=== PATIENT | female | born 1940 | race Caucasian/White ===

== ENCOUNTER 2017-03-10 15:21 | Inpatient (IN) | payer OTHER, MEDICAID ==
[~2017-03-10] VITALS: Ht 162.6 cm; Wt 81.6 kg
[2017-03-10 15:39] VITALS: BP_SYST 86
[2017-03-10] MEDS ORDERED: GASTROGRAFIN 120 ML ONE (16:04)
[2017-03-10 16:46] LABS: BASOPHILS # (AUTO) 0.1 K/uL (0.0-0.2); BASOPHILS % (AUTO) 0.7 % (0.0-2.0); EOSINOPHILS # (AUTO) 0.2 K/uL (0.0-0.4); HEMATOCRIT 33.7 % (36-48); HEMOGLOBIN 11.2 g/dL (12.0-16.0); LYMPHOCYTES # (AUTO) 1.8 K/uL (1.0-5.5); LYMPHOCYTES % (AUTO) 17.9 % (20.5-51.5); MEAN CORPUSCULAR HEMOGLOBIN 29 pg (27-31); MEAN CORPUSCULAR HGB CONC 33 % (32-36); MEAN CORPUSCULAR VOLUME 86 fL (79.0-98.0); MONOCYTES # (AUTO) 0.6 K/uL (0.0-1.0); MONOCYTES % (AUTO) 5.5 % (1.7-9.3); NEUTROPHILS # (AUTO) 7.3 K/uL (1.8-7.7); NEUTROPHILS % (AUTO) 73.9 % (40.0-70.0); PLATELET COUNT (AUTO) 282 K/uL (130-430); RED CELL DISTRIBUTION WIDTH 13.9 % (9.0-15.0)
[2017-03-10] MEDS ORDERED: ASPI-1063 GT (16:46)
[2017-03-10] MEDS ORDERED: OXYC-130 PO (16:46)
[2017-03-10] MEDS ORDERED: CHLO473M5 MM (16:46)
[2017-03-10] MEDS ORDERED: HYDR-1189 PO (16:46)
[2017-03-10] MEDS ORDERED: IPRA3AMP9 INH (16:46)
[2017-03-10] MEDS ORDERED: ACET325T53 GT (16:46)
[2017-03-10] MEDS ORDERED: ENAL20TA PO (16:46)
[2017-03-10] MEDS ORDERED: FAMO20TA98 PO (16:46)
[2017-03-10] MEDS ORDERED: NOR10 PO (16:46)
[2017-03-10] MEDS ORDERED: LEVE500T13 PO (16:46)
[2017-03-10] MEDS ORDERED: SSREG SUBCUT (16:46)
[2017-03-10] MEDS ORDERED: SENN-153 PO (16:46)
[2017-03-10] MEDS ORDERED: METO-442 GT (16:46)
[2017-03-10] MEDS ORDERED: ALBU2.5V7 INH (16:48)
[2017-03-10 16:55] LABS: ANION GAP 6 (5-15); CALCIUM 8.8 mg/dL (8.4-11.0); CHLORIDE 100 mmol/L (98-107); CREATININE 0.52 mg/dL (0.55-1.30); GLUCOSE 84 mg/dL (70-99); POTASSIUM 3.8 mmol/L (3.5-5.1); SODIUM SERUM 135 mmol/L (136-145); UREA NITROGEN, BLOOD 19 mg/dL (8-21)
[2017-03-10 17:00] LABS: ALANINE AMINOTRANSFERASE 27 U/L (12-78); ALBUMIN 2.5 g/dL (3.4-4.8); ASPARTATE AMINOTRANSFERASE 26 U/L (10-37); TOTAL BILIRUBIN 0.9 mg/dL (0.0-1.0)
[2017-03-10 17:53] VITALS: BP_SYST 123
[2017-03-10] MEDS ORDERED: MORPHINE 2 MG/ML INJ. SYRINGE IVP PRN (18:30)
[2017-03-10] MEDS ORDERED: ZOLPIDEM TARTRATE 5 MG TABLET PO PRN (18:30)
[2017-03-10] MEDS ORDERED: ACETAMINOPHEN 325 MG TABLET PO PRN (18:30)
[2017-03-10] MEDS ORDERED: DOCUSATE SODIUM 100 MG CAPSULE PO PRN (18:30)
[2017-03-10] MEDS ORDERED: ONDANSETRON HCL 4 MG/2 ML VIAL IVP PRN (18:30)
[2017-03-10] MEDS ORDERED: MAGNESIUM SULFATE 50 ML IV PRN (18:30)
[2017-03-10] MEDS ORDERED: POTASSIUM CHLORIDE 10 MEQ TAB.PRT.SR PO PRN (18:30)
[2017-03-10] MEDS: D5NS 1,000 ML IV SCH (19:51)
[2017-03-10 20:00] VITALS: BP_SYST 141
[2017-03-10 20:07] VITALS: BP_SYST 123
[2017-03-10 20:10] VITALS: BP_SYST 123
[2017-03-10] MEDS ORDERED: FLU VACC QS 2017-18(36MOS+)/PF 0.5 ML/SYR SYRINGE I.M. PRN (22:45)
[2017-03-10 23:41] VITALS: BP_SYST 144
[2017-03-11 01:08] LABS: BILIRUBIN,URINE NEGATIVE (NEGATIVE); CLARITY/URINE SL CLOUDY (CLEAR); COLOR,URINE YELLOW (YELLOW); GLUCOSE,URINE NEGATIVE (NEGATIVE); KETONES,URINE NEGATIVE (NEGATIVE); LEUKOCYTE ESTERASE ,URINE 2+ (NEGATIVE); NITRITE, URINE POSITIVE (NEGATIVE); PH,URINE 7.5 (5.0-8.0); PROTEIN URINE NEGATIVE (NEGATIVE)
[2017-03-11 01:09] LABS: BLOOD, URINE TRACE (NEGATIVE)
[2017-03-11 01:12] LABS: BACTERIA,URINE MANY /HPF (None Seen); MUCUS,URINE None Seen /LPF (None Seen); WBC,URINE 20-50 /HPF (0-3)
[2017-03-11 04:19] VITALS: BP_SYST 146
[2017-03-11 07:54] LABS: BASOPHILS % (AUTO) 0.6 % (0.0-2.0); EOSINOPHILS # (AUTO) 0.2 K/uL (0.0-0.4); EOSINOPHILS % (AUTO) 2.3 % (0.0-4.0); HEMOGLOBIN 10.4 g/dL (12.0-16.0); LYMPHOCYTES # (AUTO) 1.5 K/uL (1.0-5.5); LYMPHOCYTES % (AUTO) 19.5 % (20.5-51.5); MEAN CORPUSCULAR HEMOGLOBIN 29 pg (27-31); MEAN CORPUSCULAR HGB CONC 34 % (32-36); MEAN CORPUSCULAR VOLUME 86 fL (79.0-98.0); MONOCYTES # (AUTO) 0.4 K/uL (0.0-1.0); MONOCYTES % (AUTO) 5.7 % (1.7-9.3); NEUTROPHILS # (AUTO) 5.5 K/uL (1.8-7.7); NEUTROPHILS % (AUTO) 71.9 % (40.0-70.0); PLATELET COUNT (AUTO) 264 K/uL (130-430); RED BLOOD CELL COUNT(AUTO) 3.59 MIL/uL (4.2-6.2); RED CELL DISTRIBUTION WIDTH 14.2 % (9.0-15.0); WHITE BLOOD COUNT (AUTO) 7.6 K/uL (4.8-10.8)
[2017-03-11] MEDS ORDERED: ALBUTEROL SULFATE 0.083% 2.5 MG/3 ML VIAL.NEB INH PRN (08:00)
[2017-03-11] MEDS ORDERED: DEXTROSE 50% JECT 50 ML DISP.SYRIN IVP PRN (08:00)
[2017-03-11 08:16] LABS: ANION GAP 8 (5-15); CALCIUM 8.4 mg/dL (8.4-11.0); CHLORIDE 104 mmol/L (98-107); CREATININE 0.46 mg/dL (0.55-1.30); GLUCOSE 92 mg/dL (70-99); POTASSIUM 3.7 mmol/L (3.5-5.1); SODIUM SERUM 138 mmol/L (136-145)
[2017-03-11] MEDS: D5NS 1,000 ML IV SCH (08:59)
[2017-03-11] MEDS: cefTRIAXone 1 GM in D5W 50 ML IV SCH (08:59)
[2017-03-11 09:08] LABS: UREA NITROGEN, BLOOD 15 mg/dL (8-21)
[2017-03-11 12:25] VITALS: BP_SYST 128
[2017-03-11 17:16] VITALS: BP_SYST 123
[2017-03-11 20:00] VITALS: BP_SYST 154
[2017-03-12] VITALS (15 sets, daily range): BP systolic 104–166
[2017-03-12] MEDS: D5NS 1,000 ML IV SCH ×2 (00:47→15:39)
[2017-03-12 06:50] LABS: BASOPHILS % (AUTO) 0.6 % (0.0-2.0); EOSINOPHILS # (AUTO) 0.1 K/uL (0.0-0.4); EOSINOPHILS % (AUTO) 2.1 % (0.0-4.0); HEMATOCRIT 32.1 % (36-48); HEMOGLOBIN 10.5 g/dL (12.0-16.0); LYMPHOCYTES # (AUTO) 1.5 K/uL (1.0-5.5); LYMPHOCYTES % (AUTO) 22.2 % (20.5-51.5); MEAN CORPUSCULAR HEMOGLOBIN 29 pg (27-31); MEAN CORPUSCULAR HGB CONC 33 % (32-36); MONOCYTES # (AUTO) 0.4 K/uL (0.0-1.0); MONOCYTES % (AUTO) 5.1 % (1.7-9.3); NEUTROPHILS # (AUTO) 4.9 K/uL (1.8-7.7); PLATELET COUNT (AUTO) 270 K/uL (130-430); RED BLOOD CELL COUNT(AUTO) 3.65 MIL/uL (4.2-6.2); WHITE BLOOD COUNT (AUTO) 6.9 K/uL (4.8-10.8)
[2017-03-12 07:05] LABS: MEAN CORPUSCULAR VOLUME 88 fL (79.0-98.0)
[2017-03-12 07:11] LABS: ALANINE AMINOTRANSFERASE 24 U/L (12-78); ALBUMIN 2.3 g/dL (3.4-4.8); ANION GAP 7 (5-15); ASPARTATE AMINOTRANSFERASE 22 U/L (10-37); BILIRUBIN,DIRECT 0.2 mg/dL (0.0-0.3); CALCIUM 8.8 mg/dL (8.4-11.0); CHLORIDE 107 mmol/L (98-107); CREATININE 0.47 mg/dL (0.55-1.30); GLUCOSE 93 mg/dL (70-99); POTASSIUM 3.8 mmol/L (3.5-5.1); SODIUM SERUM 140 mmol/L (136-145); TOTAL BILIRUBIN 0.3 mg/dL (0.0-1.0); UREA NITROGEN, BLOOD 14 mg/dL (8-21)
[2017-03-12] MEDS: cefTRIAXone 1 GM in D5W 50 ML IV SCH (08:17)
[2017-03-12] MEDS: LORazepam 2 MG/ML VIAL IVP PRN (11:48)
[2017-03-12] MEDS ORDERED: DILTIAZEM HCL 25 MG/5 ML VIAL IVP ONE (13:30)
[2017-03-12 14:05] LABS: INR 1.1 (0.8-1.2); PROTHROMBIN TIME 11.7 SECS (9.5-12.5)
[2017-03-12] MEDS ORDERED: DILTIAZEM HCL 125 MG in D5W 100 ML IV SCH (17:30)
[2017-03-12 19:00] LABS: INR 1.1 (0.8-1.2); PROTHROMBIN TIME 11.5 SECS (9.5-12.5)
[2017-03-12] MEDS: MORPHINE 2 MG/ML INJ. SYRINGE IVP PRN (21:37)
[2017-03-13] VITALS (31 sets, daily range): BP systolic 121–198
[2017-03-13] MEDS: D5NS 1,000 ML IV SCH ×2 (06:43→17:45)
[2017-03-13 06:44] LABS: BASOPHILS % (AUTO) 0.5 % (0.0-2.0); EOSINOPHILS # (AUTO) 0.1 K/uL (0.0-0.4); EOSINOPHILS % (AUTO) 1.2 % (0.0-4.0); HEMATOCRIT 32.6 % (36-48); HEMOGLOBIN 10.6 g/dL (12.0-16.0); LYMPHOCYTES # (AUTO) 1.6 K/uL (1.0-5.5); LYMPHOCYTES % (AUTO) 18.5 % (20.5-51.5); MEAN CORPUSCULAR HEMOGLOBIN 29 pg (27-31); MEAN CORPUSCULAR HGB CONC 33 % (32-36); MEAN CORPUSCULAR VOLUME 88 fL (79.0-98.0); MONOCYTES # (AUTO) 0.5 K/uL (0.0-1.0); MONOCYTES % (AUTO) 5.7 % (1.7-9.3); NEUTROPHILS # (AUTO) 6.5 K/uL (1.8-7.7); NEUTROPHILS % (AUTO) 74.1 % (40.0-70.0); PLATELET COUNT (AUTO) 267 K/uL (130-430); RED BLOOD CELL COUNT(AUTO) 3.72 MIL/uL (4.2-6.2); RED CELL DISTRIBUTION WIDTH 13.9 % (9.0-15.0); WHITE BLOOD COUNT (AUTO) 8.7 K/uL (4.8-10.8)
[2017-03-13 06:52] LABS: ALANINE AMINOTRANSFERASE 22 U/L (12-78); ALBUMIN 2.2 g/dL (3.4-4.8); ANION GAP 8 (5-15); ASPARTATE AMINOTRANSFERASE 22 U/L (10-37); BILIRUBIN,DIRECT 0.2 mg/dL (0.0-0.3); CALCIUM 8.7 mg/dL (8.4-11.0); CHLORIDE 107 mmol/L (98-107); CREATININE 0.51 mg/dL (0.55-1.30); GLUCOSE 100 mg/dL (70-99); INR 1.1 (0.8-1.2); POTASSIUM 3.6 mmol/L (3.5-5.1); PROTHROMBIN TIME 11.9 SECS (9.5-12.5); SODIUM SERUM 140 mmol/L (136-145); TOTAL BILIRUBIN 0.4 mg/dL (0.0-1.0); UREA NITROGEN, BLOOD 10 mg/dL (8-21)
[2017-03-13] MEDS: cefTRIAXone 1 GM in D5W 50 ML IV SCH (08:47)
[2017-03-13] MEDS ORDERED: MIVACURIUM CHLORIDE 20 MG/10 ML VIAL (MIVACRON) INJ ONE (12:34)
[2017-03-13] MEDS ORDERED: LR 1,000 ML IV.SOLN IV ONE (12:34)
[2017-03-13] MEDS ORDERED: SUCCINYLCHOLINE CHLORIDE 20 MG/ML(QUELICIN) IVP ONE (12:34)
[2017-03-13] MEDS ORDERED: SEVOFLURANE 15 MIN GAS INH ONE (12:34)
[2017-03-13] MEDS ORDERED: ONDANSETRON HCL 4 MG/2 ML VIAL IVP ONE (12:34)
[2017-03-13] MEDS ORDERED: MIDAZOLAM HCL 5 MG/ML VIAL (VERSED) IV ONE (12:34)
[2017-03-13] MEDS ORDERED: PROPOFOL 200MG/ 20ML VIAL (DIPRIVAN) IV ONE (12:34)
[2017-03-13] MEDS ORDERED: fentaNYL CITRATE/PF 100 MCG/2 ML AMP IVP ONE (12:34)
[2017-03-13] MEDS ORDERED: NS IRRIG SOLN 1000 ML IR ONE (12:34)
[2017-03-13] MEDS ORDERED: AMIODARONE HCL 900 MG in D5W 482 ML IV SCH (13:00)
[2017-03-13] MEDS: MORPHINE 2 MG/ML INJ. SYRINGE IVP PRN ×3 (14:02→23:28)
[2017-03-13] MEDS: metroNIDAZOLE 250 mg/NS 50 ML IV SCH (22:29)
[2017-03-14] VITALS (34 sets, daily range): BP systolic 107–211
[2017-03-14] MEDS: LORazepam 2 MG/ML VIAL IVP PRN (02:05)
[2017-03-14] MEDS: metroNIDAZOLE 250 mg/NS 50 ML IV SCH ×3 (06:10→21:40)
[2017-03-14 06:43] LABS: BASOPHILS % (AUTO) 0.5 % (0.0-2.0); EOSINOPHILS # (AUTO) 0.1 K/uL (0.0-0.4); EOSINOPHILS % (AUTO) 0.8 % (0.0-4.0); HEMATOCRIT 33.3 % (36-48); HEMOGLOBIN 11.1 g/dL (12.0-16.0); LYMPHOCYTES # (AUTO) 1.4 K/uL (1.0-5.5); LYMPHOCYTES % (AUTO) 14.6 % (20.5-51.5); MEAN CORPUSCULAR HEMOGLOBIN 29 pg (27-31); MEAN CORPUSCULAR HGB CONC 33 % (32-36); MEAN CORPUSCULAR VOLUME 88 fL (79.0-98.0); MONOCYTES # (AUTO) 0.5 K/uL (0.0-1.0); MONOCYTES % (AUTO) 5.6 % (1.7-9.3); NEUTROPHILS # (AUTO) 7.8 K/uL (1.8-7.7); NEUTROPHILS % (AUTO) 78.5 % (40.0-70.0); PLATELET COUNT (AUTO) 237 K/uL (130-430); RED BLOOD CELL COUNT(AUTO) 3.79 MIL/uL (4.2-6.2); WHITE BLOOD COUNT (AUTO) 9.8 K/uL (4.8-10.8)
[2017-03-14 06:55] LABS: ALANINE AMINOTRANSFERASE 19 U/L (12-78); ALBUMIN 2.2 g/dL (3.4-4.8); ANION GAP 8 (5-15); ASPARTATE AMINOTRANSFERASE 19 U/L (10-37); CALCIUM 8.6 mg/dL (8.4-11.0); CHLORIDE 107 mmol/L (98-107); GLUCOSE 117 mg/dL (70-99); POTASSIUM 3.6 mmol/L (3.5-5.1); SODIUM SERUM 140 mmol/L (136-145); TOTAL BILIRUBIN 0.5 mg/dL (0.0-1.0); UREA NITROGEN, BLOOD 10 mg/dL (8-21)
[2017-03-14] MEDS: D5NS 1,000 ML IV SCH (08:21)
[2017-03-14] MEDS: cefTRIAXone 1 GM in D5W 50 ML IV SCH (08:21)
[2017-03-14] MEDS ORDERED: cloNIDine HCL 0.1 MG TABLET PO PRN (11:00)
[2017-03-14] MEDS ORDERED: HYDROCHLOROTHIAZIDE 25 MG TABLET (HCTZ) PO ONE (11:45)
[2017-03-14] MEDS ORDERED: LABETALOL 100 MG/ 20ML VIAL IVP ONE (12:00)
[2017-03-14] MEDS ORDERED: LABETALOL 100 MG/ 20ML VIAL ONE (12:09)
[2017-03-14] MEDS: hydrALAZINE HCL 20 MG/ML VIAL IVP PRN (13:05)
[2017-03-14] MEDS ORDERED: METOPROLOL TARTRATE 50 MG TABLET JT ONE (14:30)
[2017-03-14] MEDS ORDERED: ENALAPRIL MALEATE 10 MG TABLET (VASOTEC) JT ONE (14:30)
[2017-03-14] MEDS ORDERED: AMIODARONE HCL 200 MG TABLET JT ONE (14:30)
[2017-03-14] MEDS: ENALAPRIL MALEATE 10 MG TABLET (VASOTEC) JT SCH (20:11)
[2017-03-14] MEDS: METOPROLOL TARTRATE 50 MG TABLET JT SCH (21:00)
[2017-03-15] VITALS (22 sets, daily range): BP systolic 124–184
[2017-03-15] MEDS: hydrALAZINE HCL 20 MG/ML VIAL IVP PRN (00:12)
[2017-03-15] MEDS: D5NS 1,000 ML IV SCH ×2 (00:14→13:57)
[2017-03-15] MEDS: metroNIDAZOLE 250 mg/NS 50 ML IV SCH ×3 (06:30→22:31)
[2017-03-15 06:47] LABS: BASOPHILS % (AUTO) 0.4 % (0.0-2.0); EOSINOPHILS # (AUTO) 0.2 K/uL (0.0-0.4); EOSINOPHILS % (AUTO) 2.8 % (0.0-4.0); HEMATOCRIT 29.2 % (36-48); HEMOGLOBIN 9.7 g/dL (12.0-16.0); LYMPHOCYTES # (AUTO) 1.1 K/uL (1.0-5.5); LYMPHOCYTES % (AUTO) 13.9 % (20.5-51.5); MEAN CORPUSCULAR HEMOGLOBIN 29 pg (27-31); MEAN CORPUSCULAR HGB CONC 33 % (32-36); MEAN CORPUSCULAR VOLUME 87 fL (79.0-98.0); MONOCYTES # (AUTO) 0.5 K/uL (0.0-1.0); MONOCYTES % (AUTO) 6.3 % (1.7-9.3); NEUTROPHILS # (AUTO) 6.1 K/uL (1.8-7.7); NEUTROPHILS % (AUTO) 76.6 % (40.0-70.0); PLATELET COUNT (AUTO) 236 K/uL (130-430); RED BLOOD CELL COUNT(AUTO) 3.35 MIL/uL (4.2-6.2); WHITE BLOOD COUNT (AUTO) 7.9 K/uL (4.8-10.8)
[2017-03-15 06:48] LABS: ANION GAP 9 (5-15); CALCIUM 9.1 mg/dL (8.4-11.0); CHLORIDE 105 mmol/L (98-107); GLUCOSE 118 mg/dL (70-99); SODIUM SERUM 139 mmol/L (136-145); UREA NITROGEN, BLOOD 7 mg/dL (8-21)
[2017-03-15 06:57] LABS: POTASSIUM 2.8 mmol/L (3.5-5.1)
[2017-03-15] MEDS ORDERED: POTASSIUM CHLORIDE 40 MEQ, LIDOCAINE JECT 2% PF 100 MG 50 MG in NS 250 ML IV ONE (07:30)
[2017-03-15] MEDS: cefTRIAXone 1 GM in D5W 50 ML IV SCH (08:35)
[2017-03-15] MEDS: ENALAPRIL MALEATE 10 MG TABLET (VASOTEC) JT SCH ×2 (10:13→22:20)
[2017-03-15] MEDS: amLODIPine BESYLATE 10 MG TABLET NG SCH (10:15)
[2017-03-15] MEDS: AMIODARONE HCL 200 MG TABLET JT SCH (10:15)
[2017-03-15] MEDS: HYDROCHLOROTHIAZIDE 25 MG TABLET (HCTZ) PO SCH (10:16)
[2017-03-15] MEDS: METOPROLOL TARTRATE 50 MG TABLET JT SCH ×2 (11:41→21:00)
[2017-03-16] VITALS (7 sets, daily range): BP systolic 137–159
[2017-03-16] MEDS: D5NS 1,000 ML IV SCH ×2 (02:02→16:40)
[2017-03-16] MEDS: metroNIDAZOLE 250 mg/NS 50 ML IV SCH ×3 (06:00→21:11)
[2017-03-16 06:58] LABS: BASOPHILS % (AUTO) 0.3 % (0.0-2.0); EOSINOPHILS # (AUTO) 0.2 K/uL (0.0-0.4); EOSINOPHILS % (AUTO) 2.7 % (0.0-4.0); HEMATOCRIT 29.8 % (36-48); HEMOGLOBIN 9.9 g/dL (12.0-16.0); LYMPHOCYTES # (AUTO) 1.1 K/uL (1.0-5.5); LYMPHOCYTES % (AUTO) 16.6 % (20.5-51.5); MEAN CORPUSCULAR HEMOGLOBIN 29 pg (27-31); MEAN CORPUSCULAR HGB CONC 33 % (32-36); MEAN CORPUSCULAR VOLUME 87 fL (79.0-98.0); MONOCYTES # (AUTO) 0.3 K/uL (0.0-1.0); MONOCYTES % (AUTO) 5.3 % (1.7-9.3); NEUTROPHILS % (AUTO) 75.1 % (40.0-70.0); PLATELET COUNT (AUTO) 238 K/uL (130-430); RED BLOOD CELL COUNT(AUTO) 3.44 MIL/uL (4.2-6.2); RED CELL DISTRIBUTION WIDTH 13.9 % (9.0-15.0); WHITE BLOOD COUNT (AUTO) 6.6 K/uL (4.8-10.8)
[2017-03-16 07:43] LABS: ANION GAP 8 (5-15); CALCIUM 9.1 mg/dL (8.4-11.0); CHLORIDE 104 mmol/L (98-107); CREATININE 0.36 mg/dL (0.55-1.30); GLUCOSE 117 mg/dL (70-99); POTASSIUM 3.6 mmol/L (3.5-5.1); SODIUM SERUM 138 mmol/L (136-145)
[2017-03-16 08:40] LABS: UREA NITROGEN, BLOOD 6 mg/dL (8-21)
[2017-03-16] MEDS: cefTRIAXone 1 GM in D5W 50 ML IV SCH (08:45)
[2017-03-16] MEDS: HYDROCHLOROTHIAZIDE 25 MG TABLET (HCTZ) PO SCH (08:46)
[2017-03-16] MEDS: METOPROLOL TARTRATE 50 MG TABLET JT SCH ×2 (08:46→21:12)
[2017-03-16] MEDS: amLODIPine BESYLATE 10 MG TABLET NG SCH (08:47)
[2017-03-16] MEDS: AMIODARONE HCL 200 MG TABLET JT SCH (08:47)
[2017-03-16] MEDS: ENALAPRIL MALEATE 10 MG TABLET (VASOTEC) JT SCH ×2 (08:48→21:12)
[2017-03-17] VITALS (8 sets, daily range): BP systolic 109–160
[2017-03-17] MEDS: metroNIDAZOLE 250 mg/NS 50 ML IV SCH ×3 (06:22→21:09)
[2017-03-17 06:48] LABS: ANION GAP 7 (5-15); CALCIUM 9.2 mg/dL (8.4-11.0); CHLORIDE 102 mmol/L (98-107); CREATININE 0.52 mg/dL (0.55-1.30); GLUCOSE 122 mg/dL (70-99); POTASSIUM 3.5 mmol/L (3.5-5.1); SODIUM SERUM 134 mmol/L (136-145); UREA NITROGEN, BLOOD 9 mg/dL (8-21)
[2017-03-17 06:58] LABS: BASOPHILS % (AUTO) 0.1 % (0.0-2.0); EOSINOPHILS # (AUTO) 0.1 K/uL (0.0-0.4); EOSINOPHILS % (AUTO) 1.3 % (0.0-4.0); HEMATOCRIT 31.3 % (36-48); HEMOGLOBIN 10.2 g/dL (12.0-16.0); LYMPHOCYTES # (AUTO) 1.8 K/uL (1.0-5.5); LYMPHOCYTES % (AUTO) 22.5 % (20.5-51.5); MEAN CORPUSCULAR HEMOGLOBIN 29 pg (27-31); MEAN CORPUSCULAR HGB CONC 33 % (32-36); MEAN CORPUSCULAR VOLUME 88 fL (79.0-98.0); MONOCYTES # (AUTO) 0.5 K/uL (0.0-1.0); MONOCYTES % (AUTO) 6.2 % (1.7-9.3); NEUTROPHILS # (AUTO) 5.7 K/uL (1.8-7.7); NEUTROPHILS % (AUTO) 69.9 % (40.0-70.0); PLATELET COUNT (AUTO) 234 K/uL (130-430); RED BLOOD CELL COUNT(AUTO) 3.56 MIL/uL (4.2-6.2); RED CELL DISTRIBUTION WIDTH 14.2 % (9.0-15.0); WHITE BLOOD COUNT (AUTO) 8.1 K/uL (4.8-10.8)
[2017-03-17] MEDS: cefTRIAXone 1 GM in D5W 50 ML IV SCH (08:34)
[2017-03-17] MEDS: D5NS 1,000 ML IV SCH ×2 (08:34→20:45)
[2017-03-17] MEDS: HYDROCHLOROTHIAZIDE 25 MG TABLET (HCTZ) PO SCH (08:43)
[2017-03-17] MEDS: ENALAPRIL MALEATE 10 MG TABLET (VASOTEC) JT SCH (08:43)
[2017-03-17] MEDS: AMIODARONE HCL 200 MG TABLET JT SCH (08:43)
[2017-03-17] MEDS: METOPROLOL TARTRATE 50 MG TABLET JT SCH (08:44)
[2017-03-17] MEDS: amLODIPine BESYLATE 10 MG TABLET NG SCH (08:44)
[2017-03-17] MEDS ORDERED: ACETAMINOPHEN 325 MG TABLET GT PRN (09:15)
[2017-03-17] MEDS ORDERED: cloNIDine HCL 0.1 MG TABLET GT PRN (09:15)
[2017-03-17] MEDS: INSULIN ASPART 100 UNITS/ML, 10 ML VIAL (NovoLOG) SUBCUT PRN ×2 (11:28→16:52)
[2017-03-17] MEDS: METOPROLOL TARTRATE 50 MG TABLET GT SCH (20:46)
[2017-03-17] MEDS: ENALAPRIL MALEATE 10 MG TABLET (VASOTEC) GT SCH (20:46)
[2017-03-18 04:55] VITALS: BP_SYST 139
[2017-03-18] MEDS: metroNIDAZOLE 250 mg/NS 50 ML IV SCH (05:05)
[2017-03-18 06:26] LABS: BASOPHILS % (AUTO) 0.5 % (0.0-2.0); EOSINOPHILS # (AUTO) 0.2 K/uL (0.0-0.4); EOSINOPHILS % (AUTO) 1.9 % (0.0-4.0); HEMATOCRIT 28.5 % (36-48); HEMOGLOBIN 9.5 g/dL (12.0-16.0); LYMPHOCYTES # (AUTO) 2.3 K/uL (1.0-5.5); LYMPHOCYTES % (AUTO) 26.2 % (20.5-51.5); MEAN CORPUSCULAR HEMOGLOBIN 29 pg (27-31); MEAN CORPUSCULAR HGB CONC 33 % (32-36); MEAN CORPUSCULAR VOLUME 87 fL (79.0-98.0); MONOCYTES # (AUTO) 0.6 K/uL (0.0-1.0); MONOCYTES % (AUTO) 7.2 % (1.7-9.3); NEUTROPHILS # (AUTO) 5.7 K/uL (1.8-7.7); NEUTROPHILS % (AUTO) 64.2 % (40.0-70.0); PLATELET COUNT (AUTO) 188 K/uL (130-430); RED BLOOD CELL COUNT(AUTO) 3.26 MIL/uL (4.2-6.2); RED CELL DISTRIBUTION WIDTH 13.9 % (9.0-15.0); WHITE BLOOD COUNT (AUTO) 8.8 K/uL (4.8-10.8)
[2017-03-18 06:31] LABS: ANION GAP 6 (5-15); CALCIUM 9.1 mg/dL (8.4-11.0); CHLORIDE 105 mmol/L (98-107); CREATININE 0.49 mg/dL (0.55-1.30); GLUCOSE 131 mg/dL (70-99); POTASSIUM 3.4 mmol/L (3.5-5.1); SODIUM SERUM 137 mmol/L (136-145); UREA NITROGEN, BLOOD 13 mg/dL (8-21)
[2017-03-18 07:55] VITALS: BP_SYST 117
[2017-03-18] MEDS: cefTRIAXone 1 GM in D5W 50 ML IV SCH (08:13)
[2017-03-18] MEDS: ENALAPRIL MALEATE 10 MG TABLET (VASOTEC) GT SCH (08:54)
[2017-03-18] MEDS: METOPROLOL TARTRATE 50 MG TABLET GT SCH (08:54)
[2017-03-18] MEDS ORDERED: HYDROCHLOROTHIAZIDE 25 MG TABLET (HCTZ) GT SCH (09:00)
[2017-03-18] MEDS ORDERED: AMIODARONE HCL 200 MG TABLET GT SCH (09:00)
[2017-03-18] MEDS ORDERED: amLODIPine BESYLATE 10 MG TABLET GT SCH (09:00)
[2017-03-18 09:35] VITALS: BP_SYST 122
[2017-03-18] MEDS: D5NS 1,000 ML IV SCH (11:09)
== END 2017-03-18 12:35 | DRG 326 ==
LOC: SED 15:21 → STU 17:13 → SIC 03-12 17:11 → STU 03-15 14:20
PROVIDERS: ADMIT General Practice; ATTEND General Practice
PROC: 5A1955Z Respiratory Ventilation, Greater than 96 Consecutive Hours (ICD-10-PCS; 2017-03-10)
PROC: 02HV33Z Insertion of Infusion Device into Superior Vena Cava, Percutaneous Approach (ICD-10-PCS; 2017-03-10)
PROC: 02PYX3Z Removal of Infusion Device from Great Vessel, External Approach (ICD-10-PCS; 2017-03-13)
PROC: 0DH60UZ Insertion of Feeding Device into Stomach, Open Approach (ICD-10-PCS; principal; 2017-03-13 11:00)
DX: K94.13 Enterostomy malfunction (principal); J69.0 Pneumonitis due to inhalation of food and vomit; I63.9 Cerebral infarction, unspecified; J96.10 Chronic respiratory failure, unspecified whether with hypoxia or hypercapnia; E44.0 Moderate protein-calorie malnutrition; N39.0 Urinary tract infection, site not specified; I48.91 Unspecified atrial fibrillation; R47.01 Aphasia; I10 Essential (primary) hypertension; Y83.8 Other surgical procedures as the cause of abnormal reaction of the patient, or of later complication, without mention of misadventure at the time of the procedure; Y82.8 Other medical devices associated with adverse incidents; R13.10 Dysphagia, unspecified; E11.9 Type 2 diabetes mellitus without complications; Z16.24 Resistance to multiple antibiotics; B96.20 Unspecified Escherichia coli [E. coli] as the cause of diseases classified elsewhere; G40.909 Epilepsy, unspecified, not intractable, without status epilepticus; Z68.30 Body mass index [BMI] 30.0-30.9, adult; Z79.82 Long term (current) use of aspirin; Z79.899 Other long term (current) drug therapy
CPT/HCPCS: 36415; 36600; 71010; 74000-TC; 76700-TC; 80048; 80053; 80076; 81000-TC; 82803-TC; 82962; 82977-TC; 83735-TC; 85025; 85610-TC; 85730-TC; 87081; 87086; 87186-TC; 93005; 93306; 94002; 94003; 94760; 99285; C1751; J0282; J0330; J0360; J0696; J1815; J2060; J2250; J2270; J2405; J2704; J3010; J3480; J3490; J7042; J7050; J7060; J7120; Q9963